=== PATIENT | male | born 1955 | race Caucasian/White ===

== ENCOUNTER 2019-04-11 08:00 | Outpatient (CLI) | payer BC, MEDICARE ==
[2019-04-11] MEDS ORDERED: HYDR-3245 PO (11:06)
[2019-04-11] MEDS ORDERED: CHOL200024 PO (11:06)
[2019-04-11] MEDS ORDERED: MV,M1TAB4 PO (11:06)
[2019-04-11] MEDS ORDERED: GARL10002 PO (11:06)
[2019-04-11] MEDS ORDERED: LISI40TA PO (11:06)
[2019-04-11 11:56] LABS: ALANINE AMINOTRANSFERASE 34 U/L (12-78); ANION GAP 4 mmol/L (5-15); CALCIUM 8.8 mg/dL (8.5-10.1); CHLORIDE 109 mmol/L (98-107)
[2019-04-11 11:59] LABS: ALKALINE PHOSPHATASE 54 U/L (45-117); BILIRUBIN,TOTAL 0.6 mg/dL (0.2-1.0); CREATININE 0.85 mg/dL (0.7-1.3); TOTAL PROTEIN 7.4 g/dL (6.4-8.2)
[2019-04-11 12:05] LABS: MICROSCOPIC NOT IND
[2019-04-17] MEDS ORDERED: FENTANYL PF 100 MCG/2ML ONE ×2 (12:20→13:47)
[2019-04-17] MEDS ORDERED: MIDAZOLAM 1 MG/ML, 2ML ONE (12:20)
[2019-04-17] MEDS ORDERED: CEFAZOLIN 1,000 MG ONE (13:56)
[2019-04-17] MEDS ORDERED: ONDANSETRON 2MG/ML, 2ML ONE (13:56)
[2019-04-17] MEDS ORDERED: DEXAMETHASONE 4 MG/ML, 1ML ONE (13:56)
[2019-04-17] MEDS ORDERED: PROPOFOL 10 MG/ML, 20ML ONE (13:56)
== END 2019-04-11 23:59 | disposition home or self-care (01) ==
LOC: STAR 08:00
PROVIDERS: ATTEND Urology
DX: Z01.818 Encounter for other preprocedural examination (principal); N13.2 Hydronephrosis with renal and ureteral calculous obstruction; I44.0 Atrioventricular block, first degree
CPT/HCPCS: 36415; 80053; 81003; 87086; 93005

== ENCOUNTER 2019-04-17 09:38 | Day surgery (SDC) | payer BC, MEDICARE ==
[~2019-04-17] VITALS: Ht 180.3 cm; Wt 71.7 kg
== END 2019-04-17 17:00 | disposition home or self-care (01) ==
LOC: OUT 09:38
PROVIDERS: ATTEND Urology
DX: N13.2 Hydronephrosis with renal and ureteral calculous obstruction (principal); I10 Essential (primary) hypertension; Z72.89 Other problems related to lifestyle; Z79.899 Other long term (current) drug therapy; Z87.891 Personal history of nicotine dependence
CPT/HCPCS: 50590; J1100; J2250; J2405; J2704; J3010; J7120; J0690